=== PATIENT | male | born 1940 | race African-American/Black ===

== ENCOUNTER 2022-04-24 09:51 | Inpatient (IN) | payer OTHER, SELFPAY ==
[2022-04-24] VITALS (8 sets, daily range): BP systolic 132–189; BP diastolic 63–90; PULSE 73–96; RESP 12–16; TEMP 36.1–36.8; O2SAT 96–99; BMI 20.7
--- NOTE | ~2022-04-24 | CT_ITS ---
EXAMINATION: CT ABDOMEN AND PELVIS WITHOUT CONTRAST CLINICAL INFORMATION: With a history of pancreatitis COMPARISON: None TECHNIQUE: Multidetector volumetric imaging was performed from the superior aspect of the liver through the pubic symphysis. Sagittal and coronal reformatted images were obtained on the technologist's workstation. This CT examination was performed using dose optimization techniques as appropriate, variously including the following: *Automated exposure control *Adjustment of mA and/or kV according to patient size (this includes techniques or standardized protocols for targeted exams where dose is matched to indication/reason for exam; i.e. extremities or head) *Use of iterative reconstruction technique DLP: 157 mGy-cm FINDINGS: LUNG BASES: The visualized lung bases are unremarkable. Small anterior pericardial effusion/thickening LIVER, GALLBLADDER, AND BILIARY TREE: The liver is normal in size, shape, and attenuation. No focal hepatic lesion or biliary ductal dilatation is present. The gallbladder is unremarkable with no evidence of radiopaque gallstones, gallbladder wall thickening, or obvious pericholecystic inflammatory changes. PANCREAS: There is mild fullness of the pancreatic head and there is some soft tissue stranding surrounding the region. SPLEEN: Unremarkable. ADRENAL GLANDS: Unremarkable. KIDNEYS AND URETERS: No hydronephrosis. Simple appearing cyst on the right. Areas of low attenuation on the left could represent cysts. BLADDER: Bladder is thick-walled. GASTROINTESTINAL TRACT: Diverticulosis in the large bowel. No evidence for diverticulitis here. Some minimal soft tissue stranding surrounding the appendix but the appendix is normal and this may be the patient's baseline. ABDOMINAL WALL: No significant hernia is appreciated. LYMPH NODES: There is some adenopathy in the region of the pancreas. This is not bulky. May be reactive. VASCULAR: Atherosclerotic change. Mild ectasia of the iliacs. PELVIC VISCERA: Some free fluid in the deep pelvis. Prominent prostate. OSSEOUS STRUCTURES: Degenerative changes. No suspicion for a bony lesion. CT/CT abdomen pelvis wo con IMPRESSION: Noncontrast study limits this exam The pancreatic head is enlarged here with some surrounding soft tissue stranding and mild adenopathy. While this could represent sequela of pancreatitis an underlying mass cannot be excluded and I would recommend follow-up and clinical correlation here. Mild free fluid in the deep pelvis of uncertain etiology. The bowel pattern is unremarkable. Diverticulosis but no evidence for diverticulitis. Probable cystic change as described in the kidneys. Ultrasound would be recommended to fully evaluate. Prominent prostate. Thick-walled bladder could be hypertrophy. Small anterior pericardial effusion/thickening Fleischner guidelines were followed.
--- NOTE | 2022-04-24 10:28 | ED.ABDPAIN ---
HPI - Abdominal Pain General Chief Complaint: Abdominal Pain Stated Complaint: abdominal tenderness Time Seen by Provider: 04/24/22 09:54 Source: patient, EMS, RN notes reviewed and old records reviewed Mode of arrival: EMS Limitations: no limitations History of Present Illness HPI narrative: This is a 81-year-old male, with a past medical history of hypertension and pancreatitis in the , who presents today via EMS with complaints of abdominal pain since Tuesday. Patient reports that the abdominal pain is epigastric, constant, but does not radiate and increases in pain with palpation. He denies any nausea, vomiting, or diarrhea. He denies any fevers or chills. He reports that he drank two beers and a shot of vodka on Tuesday, and several hours after he felt this abdominal pain. He states that he drinks alcohol rarely, never a daily drinker. He states that his pain feels similar to his pancreatitis he had back in 1979. He states that he is not sure why he had pancreatitis at that time but states that he did drink alcohol more frequently then and also consumed alot of spicy foods. Denies any history of any abdominal surgeries or known history of gallstones. Denies any other complaints or concerns at this time. MD elicited complaint: abdominal pain Pertinent past history: none Onset (ago): day(s) Pain Consistency: constant Location: epigastric Severity: moderate Pain scale (0-10): 8 Quality: aching Radiation: none Migration to: no migration Exacerbating factors: other (palpation) Relieving factors: nothing Context: history of similar episodes Associated symptoms: denies other symptoms Related Data Allergies Allergy/AdvReac Type Severity Reaction Status Date / Time No Known Allergies Allergy Mild NONE Unverified 06/26/20 17:36 Review of Systems Review of Systems Constitutional: No Fever, No Chills ENT/Mouth: No sore throat, No Rhinorrhea, No Swallowing Difficulty Eyes: No Eye Pain, No Swelling, No Redness Cardiovascular: No Chest Pain, No SOB, No Orthopnea, No Edema Respiratory: No Cough, No Sputum, No Wheezing, No dyspnea Gastrointestinal: +abdominal pain, No Nausea, No Vomiting, No Diarrhea, No Hematochezia, No Melena Genitourinary: No Dysuria, No Urinary Frequency, No Hematuria Musculoskeletal: No joint pain, No Myalgias Skin: No Skin Lesions, No rash Neuro: No Weakness, No Numbness, No Dizziness, No Headache Psych: No Anxiety/Panic, No Depression Heme/Lymph: No Bruising, No Lymphadenopathy Endocrine: No Polyuria, No Polydipsia [facility] Social History Social History Alcohol intake: former Patient Tobacco Use Status: Former Tobacco user Smoked in Last 30 Days: No Use of substances other than those prescribed or required for medical reasons: No Advance Directives: No Advance Directives Information Provided: Yes Physical Exam ED Vital Signs: Vital Signs - 24 hr 04/24/22 10:04 04/24/22 12:37 Temperature 98.3 F 97.6 F Pulse Rate 82 77 Respiratory Rate 16 16 Blood Pressure 132/63 168/69 H Pulse Oximetry 99 99 Oxygen Delivery Method Room Air Room Air BMI result Body Mass Index 20.7 Appearance: Alert. Oriented X3. No acute distress. Eyes: Pupils equal, round and reactive to light. ENT: Pharynx normal. Neck: Normal inspection. Neck supple. CVS: Normal heart rate and rhythm. Pulses normal. Respiratory: No respiratory distress. Breath sounds normal. Abdomen: abdomen is soft. Tenderness to palpation in the epigastric region. No rebound or guarding.+BS x4 Skin: Skin warm and dry. Normal skin color. Normal skin turgor. No rashes. Extremities: No lower extremity edema. Neuro: Oriented X 3. No motor deficit. No sensory deficit. Course Course Course Narrative: This is an 81-year-old male, with a past medical history of pancreatitis in the 1980s, who presents today with complaints of abdominal pain. He states that this pain feels like the pancreatitis he had in the past. Vital signs are within normal limits at this time. Plan: CBC, BMP, EKG, magnesium, liver function panel, lipase, ethyl alcohol, COVID [address] abdomen pelvis without contrast ordered. 1 L of IV fluids ordered and Fentanyl 50 mcg IV given for pain management. Reevaluation(s) Reevaluation #1: Patient was re-evaluated. Elevated lipase at 228. CT scan reveals the pancreatic head is enlarged with some soft tissue stranding and mild adenopathy. While this could represent a sequela of pancreatitis an underlying mass cannot be excluded. Incidental finding mild free fluid in the deep pelvis of uncertain etiology, diverticulosis without diverticulitis, probable cystic change described in the kidneys recommended ultrasound follow-up. Prominent prostate with thick-walled bladder exam be hypertrophy. Small anterior pericardial effusion and thickening. BISAP score for pancreatitis: 2 Vital signs remain stable. He states that his pain resolved with fentanyl and the IV fluids. His abdomen is soft and nontender. Several minutes after the examination patient reports that he has some mild cramping in his epigastrium region. PO trial of juice performed. Will re-evaluate. Time: 12:20 Reevaluation #2: Discussed case with Dr. Sanders who because of his CT findings and patient's age would benefit from hospital admission for further management. Recommending MRI w/ con for further evaluation of possible pancreatic mass. Pending admission. Time: 12:50 MDM - Abdominal Pain Lab Data Result diagrams: 04/24/22 10:27 04/24/22 10:27 Labs: Lab Results 04/24/22 04/24/22 04/24/22 Range/Units 10:24 10:27 10:27 WBC 5.9 (4.8-10.8) X10*3/uL RBC 3.76 L (4.60-5.80) X10*6/uL Hgb 11.6 L (14.0-18.0) g/dl Hct 35.2 L (42.0-52.0) % MCV 93.6 (80.0-98.0) fL MCH 30.9 (27.0-33.0) pg MCHC 33.0 (31.0-36.0) g/dl RDW 12.7 (11.0-16.0) % Plt Count 198 (160-400) X10*3/uL MPV 9.4 (9.4-12.4) fL Immature Gran % (Auto) 0.3 (0.0-0.4) % Neut % (Auto) 66.5 (45-73) % Lymph % (Auto) 15.1 L (20-40) % Barnes % (Auto) 14.2 H (2-11) % Eos % (Auto) 3.2 (0-4) % Baso % (Auto) 0.7 (0-2) % Lymph # (Auto) 0.9 L (1.2-4.9) X10*3/uL Barnes # (Auto) 0.8 (0.1-1.2) X10*3/uL Eos # (Auto) 0.2 (0.0-0.4) X10*3/uL Baso # (Auto) 0.0 (0.0-0.2) X10*3/uL Abs Immat Gran (auto) 0.02 (0.00-0.03) X10*3/uL Absolute Neuts (auto) 3.9 (2.0-8.3) x10*3/uL Absolute Nucleated RBC 0.000 (0.0-0.012) X10*3/uL Nucleated RBC % (auto) 0.0 (0.0-0.2) /100WBC Sodium 136 (135-145) mmol/L Potassium 5.0 (3.3-5.1) mmol/L Chloride 105 (96-108) mmol/L Carbon Dioxide 23 (22-29) mmol/L Anion Gap 13 (12-20) BUN 23 H (9-16) mg/dL Creatinine 1.50 H (0.5-1.4) mg/dL Estim Creat Clear Calc 37.3 Estimated GFR 45 Random Glucose 113 (60-115) mg/dL Calcium 8.7 (8.4-10.2) mg/dL Magnesium 1.8 (1.6-2.6) mg/dL Total Bilirubin 0.7 (0.0-1.0) mg/dL Direct Bilirubin 0.3 (0.0-0.5) mg/dL AST 37 (5-37) U/L ALT 18 (0-40) U/L Alkaline Phosphatase 65 (39-117) U/L Lactate Dehydrogenase 362 H (118-273) U/L Total Protein 7.0 (6.5-8.0) g/dL Albumin 3.7 (3.5-5.0) g/dL Triglycerides 32 mg/dL Lipase 228 H (8-78) U/L Ethyl Alcohol < 10 mg/dL COVID-19 (CARLOS) Negative (Negative) COVID-19 Clin Com See Note Imaging Data CT scan - abdomen: Attestation: I personally reviewed and interpreted this imaging study as follows: Radiologist's impression: FINDINGS: LUNG BASES: The visualized lung bases are unremarkable. Small anterior pericardial effusion/thickening LIVER, GALLBLADDER, AND BILIARY TREE: The liver is normal in size, shape, and attenuation. No focal hepatic lesion or biliary ductal dilatation is present. The gallbladder is unremarkable with no evidence of radiopaque gallstones, gallbladder wall thickening, or obvious pericholecystic inflammatory changes.? PANCREAS: There is mild fullness of the pancreatic head and there is some soft tissue stranding surrounding the region.? SPLEEN: Unremarkable.? ADRENAL GLANDS: Unremarkable.? KIDNEYS AND URETERS: No hydronephrosis. Simple appearing cyst on the right. Areas of low attenuation on the left could represent cysts. BLADDER: Bladder is thick-walled.? GASTROINTESTINAL TRACT: Diverticulosis in the large bowel. No evidence for diverticulitis here. Some minimal soft tissue stranding surrounding the appendix but the appendix is normal and this may be the patient's baseline. ABDOMINAL WALL: No significant hernia is appreciated.? LYMPH NODES: There is some adenopathy in the region of the pancreas. This is not bulky. May be reactive. VASCULAR: Atherosclerotic change. Mild ectasia of the iliacs. PELVIC VISCERA: Some free fluid in the deep pelvis. Prominent prostate. ? OSSEOUS STRUCTURES: Degenerative changes. No suspicion for a bony lesion.? CT/CT abdomen pelvis wo con IMPRESSION: Noncontrast study limits this exam The pancreatic head is enlarged here with some surrounding soft tissue stranding and mild adenopathy. While this could represent sequela of pancreatitis an underlying mass cannot be excluded and I would recommend follow-up and clinical correlation here. ? Mild free fluid in the deep pelvis of uncertain etiology. The bowel pattern is unremarkable. Diverticulosis but no evidence for diverticulitis. ? Probable cystic change as described in the kidneys. Ultrasound would be recommended to fully evaluate. ? Prominent prostate. Thick-walled bladder could be hypertrophy. ? Small anterior pericardial effusion/thickening ? Fleischner guidelines were followed. Discharge Plan Discharge Clinical Impression: Pancreatitis Patient Disposition: Admitted As Inpatient
[2022-04-24 10:32] LABS: MANUAL DIFF FLAG NO
[2022-04-24 10:35] LABS: Basophils Percent Auto 0.7 % (0-2); Eosinophils Absolute Auto 0.2 X10*3/uL (0.0-0.4); Eosinophils Percent Auto 3.2 % (0-4); Hematocrit 35.2 % (42.0-52.0); Hemoglobin 11.6 g/dl (14.0-18.0); Imm Gran Abs Auto 0.02 X10*3/uL (0.00-0.03); Imm Gran Pct Auto 0.3 % (0.0-0.4); Lymphocytes Absolute Auto 0.9 X10*3/uL (1.2-4.9); Lymphocytes Percent Auto 15.1 % (20-40); Mean Corpuscular Hemoglobin 30.9 pg (27.0-33.0); Mean Corpuscular Volume 93.6 fL (80.0-98.0); Mean Platelet Volume 9.4 fL (9.4-12.4); Monocytes Absolute Auto 0.8 X10*3/uL (0.1-1.2); Monocytes Percent Auto 14.2 % (2-11); Neutrophils Absolute Auto 3.9 x10*3/uL (2.0-8.3); Neutrophils Percent Auto 66.5 % (45-73); Platelet Count 198 X10*3/uL (160-400); Red Blood Count 3.76 X10*6/uL (4.60-5.80); Red Cell Distribution Width 12.7 % (11.0-16.0); White Blood Count 5.9 X10*3/uL (4.8-10.8)
[2022-04-24] MEDS: 0.9 % Sodium Chloride 1,000 ML 999 ML IVCONT (10:38)
[2022-04-24] MEDS: fentaNYL citrate/PF 100 MCG/2 ML VIAL 50 MCG IVPUSH (10:38)
[2022-04-24 10:54] LABS: Alanine Aminotransferase 18 U/L (0-40); Albumin Level 3.7 g/dL (3.5-5.0); Alkaline Phosphatase 65 U/L (39-117); Anion Gap 13 (12-20); Aspartate Amino Transferase 37 U/L (5-37); Bilirubin Direct 0.3 mg/dL (0.0-0.5); Bilirubin Total 0.7 mg/dL (0.0-1.0); Blood Urea Nitrogen 23 mg/dL (9-16); Calcium 8.7 mg/dL (8.4-10.2); Carbon Dioxide 23 mmol/L (22-29); Chloride 105 mmol/L (96-108); Creatinine Clr Calc Pharmacy 37.3; Estimated Glomerular Filt Rate 45; Ethanol < 10 mg/dL; Glucose Random 113 mg/dL (60-115); Lipase 228 U/L (8-78); Magnesium 1.8 mg/dL (1.6-2.6); Sodium 136 mmol/L (135-145)
[2022-04-24 10:59] LABS: COVID-19 Test Negative (Negative); IDNOW Serial# 08D9AD1C
[2022-04-24 12:40] LABS: Triglycerides 32 mg/dL
[2022-04-24 12:55] LABS: Lactate Dehydrogenase 362 U/L (118-273)
--- NOTE | 2022-04-24 14:20 | PHA.MEDREC ---
Pharmacy Consult ? Medication Reconciliation Pharmacy has completed the medication reconciliation. Spoke with patient in the ED. patient had a list and knew all medications. Patient took AM meds.
[2022-04-24] MEDS: HYDROmorphone HCl 0.5 MG/0.5 ML SYRINGE IVPUSH (14:49)
--- NOTE | 2022-04-24 15:37 | PM.IMHP ---
History of Present Illness Date of Service: 04/24/22 Chief Complaint: abdominal pain an 81 years old male with PMH of HTN, COPD who presents to the hospital complaining of abdominal pain for the last 3 days. The patient reports that he had some beer and vodka on Tuesday and since then he has been complaining of constant abdominal pain, epigastric, worsened with food with no associated nausea, vomiting, fever, change in bowel habit or urinary symptoms. He does not usually drink and this was 1 time occasion where he had some drinks. He reports that he had episode of pancreatitis back in s and was similar to what he is feeling right now. Images in the emergency showed an evidence of pancreatitis with elevated lipase. Will be admitted for further evaluation and treatment. Review of Systems Review of Systems: No fever, chills or weakness No chest pain, palpitation No shortness of breath or coughing Epigastric pain, no nausea or vomiting No urinary symptoms No any rash or wounds PMFSH Social History Alcohol intake: former Patient Tobacco Use Status: Former Tobacco user Smoked in Last 30 Days: No Use of substances other than those prescribed or required for medical reasons: No Advance Directives: No Advance Directives Information Provided: Yes Meds Allergies Allergy/AdvReac Type Severity Reaction Status Date / Time No Known Allergies Allergy Mild NONE Unverified 06/26/20 17:36 Active Medications: Current Medications Pharmacy Consult (Consult Rx Perform Med Rec) 1 each MISCELLANE ONCE PRN PRN Reason: Consult order Home Medications Medication Instructions Recorded Confirmed Last Taken Type acetaminophen 325 mg tablet 2 tab PO TID PRN fever/pain 04/24/22 04/24/22 Unknown History albuterol sulfate 3 ml inhalation Q4H PRN Shortness 04/24/22 04/24/22 04/24/22 History Of Breath albuterol sulfate 90 mcg/actuation 1 - 2 inh inhalation Q4-6H PRN 04/24/22 04/24/22 Unknown History aerosol inhaler Shortness Of Breath aspirin 81 mg tablet,delayed 1 tab PO DAILY 04/24/22 04/24/22 04/24/22 History release atorvastatin 80 mg tablet 1 tab PO BEDTIME 04/24/22 04/24/22 04/24/22 History docusate sodium 100 mg capsule 1 cap PO BID 04/24/22 04/24/22 04/24/22 History doxazosin 8 mg tablet 1 tab PO BEDTIME 04/24/22 04/24/22 04/24/22 History enalapril maleate 20 mg tablet 1 tab PO BID 04/24/22 04/24/22 04/24/22 History fluticasone 500 mcg-salmeterol 50 1 puff inhalation BID 04/24/22 04/24/22 04/24/22 History mcg/dose blistr powdr for inhalation (Wixela Inhub) pantoprazole 40 mg tablet,delayed 1 tab PO BID@0630,1630 04/24/22 04/24/22 04/24/22 History release Physical Exam Vital Signs and Narrative: Vital Signs: Last Vital Signs Temp 97.9 F 04/24/22 14:38 Pulse 73 04/24/22 14:38 Resp 16 04/24/22 14:49 BP 189/90 H 04/24/22 14:38 Pulse Ox 99 04/24/22 14:38 O2 Del Method 04/24/22 14:38 BMI result Body Mass Index 20.7 Const: Other: Constitutional : Alert, oriented, not in distress Neck : Normal inspection, Supple Cardiovascular : RRR, no JVP, no lower extremity edema Respiratory : fair bilateral air entry, no crackles, wheezes or rhonchi Gastrointestinal: soft, lax, Normal bowel sounds, epigastric tenderness with no surgical signs Skin : Warm, Dry Neurological : Alert & oriented x3, No focal deficit , CN 2-12 within normal Results Labs CBC and Chem 7: 04/24/22 10:27 04/24/22 10:27 Labs: Laboratory Results - last 24 hr 04/24/22 04/24/22 04/24/22 10:24 10:27 10:27 MCV 93.6 MCH 30.9 MCHC 33.0 RDW 12.7 Plt Count 198 MPV 9.4 Immature Gran % (Auto) 0.3 Neut % (Auto) 66.5 Lymph % (Auto) 15.1 L [place] % (Auto) 14.2 H Eos % (Auto) 3.2 Baso % (Auto) 0.7 Lymph # (Auto) 0.9 L [place] # (Auto) 0.8 Eos # (Auto) 0.2 Baso # (Auto) 0.0 Abs Immat Gran (auto) 0.02 Absolute Neuts (auto) 3.9 Absolute Nucleated RBC 0.000 Nucleated RBC % (auto) 0.0 Anion Gap 13 Estim Creat Clear Calc 37.3 Estimated GFR 45 Random Glucose 113 Calcium 8.7 Magnesium 1.8 Total Bilirubin 0.7 Direct Bilirubin 0.3 AST 37 ALT 18 Alkaline Phosphatase 65 Lactate Dehydrogenase 362 H Total Protein 7.0 Albumin 3.7 Triglycerides 32 Lipase 228 H Ethyl Alcohol < 10 COVID-19 (CARLOS) Negative COVID-19 Clin Com See Note Imaging Radiologist's Impressions: Impressions Abdomen/Pelvis CT 04/24/22 10:56 IMPRESSION: Noncontrast study limits this exam The pancreatic head is enlarged here with some surrounding soft tissue stranding and mild adenopathy. While this could represent sequela of pancreatitis an underlying mass cannot be excluded and I would recommend follow-up and clinical correlation here. Mild free fluid in the deep pelvis of uncertain etiology. The bowel pattern is unremarkable. Diverticulosis but no evidence for diverticulitis. Probable cystic change as described in the kidneys. Ultrasound would be recommended to fully evaluate. Prominent prostate. Thick-walled bladder could be hypertrophy. Small anterior pericardial effusion/thickening Fleischner guidelines were followed. Assessment and Plan (1) Pancreatitis: Status: Acute Plan an 81 years old male with PMH of HTN, COPD who presents to the hospital complaining of abdominal pain for the last 3 days. acute pancreatitis Seems to be related to his alcohol usage CT scan showed pancreatic head this enlarged with soft tissue stranding and mild adenopathy which could be concerning for possible underlying mass Start treatment with IV fluid Pain medication Clear liquids and advanced as tolerated Get GI evaluation Will likely need MRI with contrast to evaluate head of pancreas after this event resolves abnormal kidney function test No recent blood work to compare creatinine of 1.5 Cystic kidneys, Noted on CT scan Recommended ultrasound follow-up as outpatient monitor BMP COPD Albuterol as needed Hypertension Elevated treating at presentation Start his home medication of enalapril and monitor blood pressure DVT PPX Lovenox The patient will likely need 2 overnight hospital stay for treatment of acute pancreatitis and evaluation of kidney function. Quality Stroke Does the patient have a stroke diagnosis?: No VTE Prior VTE?: No VTE Risk Level:: Medical - moderate - high VTE Device Contraindication: Treatment Not Indicated VTE Drug Contraindication: N/A - Med Ordered
[2022-04-24] MEDS: 0.9 % Sodium Chloride 1,000 ML 150 ML IVCONT ×2 (15:49→23:22)
--- NOTE | 2022-04-24 17:26 | P.CNGI_ITS ---
History of Present Illness Data of Consult Service Date: 04/24/22 Requesting physician: Doris Machuca Primary Care Provider: Debby Segura MD HPI Reason for consult: pancreatitis 81 years old male with PMH of HTN, COPD who I am seeing for assessment for pancreatitis. Patient had some beer and vodka on Tuesday and since? then he has been complaining of constant 10/10 aching, epigastric pain, without radiation, worse with food, and no relieving factors. Denies nausea, vomiting, fever, change in bowel habit or urinary symptoms. he does have poor appettite right now but had been very good before this, no weight loss He said he has had pancreatitis before many years ago and this pain felt the same. He does not normally drink alcohol or take drugs Imaging with changes consistent with pancreatitis, although neoplasia cannot be ruled out. Review of Systems Review of Systems: Constitutional : No Weight loss, No Fever, No Chills ENT/Mouth : No sore throat, No Rhinorrhea Eyes: No Swelling, No Redness Cardiovascular : No Chest Pain, No SOB, No Edema Respiratory : No Cough, No Sputum, No Wheezing Gastrointestinal : see HPI Genitourinary : NO Dysuria, No Urinary Frequency, No Hematuria, No Urgency Musculoskeletal : No joint pain, No Myalgias, No Joint Swelling Skin : No Skin Lesions, No rash Neuro : No Weakness, No Numbness, No Dizziness, No Headache Psych : No Anxiety/Panic, No Depression Heme/Lymph: No Bruising, No Lymphadenopathy Endocrine : No Polyuria, No Polydipsia All other systems reviewed and are negative. [facility] Family History Pertinent family history: no fh of pancreatic cancer Social History Social History Alcohol intake: former Patient Tobacco Use Status: Former Tobacco user Smoked in Last 30 Days: No Use of substances other than those prescribed or required for medical reasons: No Advance Directives: No Advance Directives Information Provided: Yes Meds Allergies Allergy/AdvReac Type Severity Reaction Status Date / Time No Known Allergies Allergy Mild NONE Unverified 06/26/20 17:36 Active Medications: Current Medications Acetaminophen (Acetaminophen 325 Mg Tablet) 650 mg PO TID PRN PRN Reason: fever/pain Albuterol Sulfate (Albuterol Sulfate (0.083%) 2.5 Mg/3 Ml Vial.Neb) 2.5 mg INHALE Q4H PRN PRN Reason: Shortness Of Breath Albuterol Sulfate (Albuterol Sulfate 90 Mcg 8 Gm Inhaler) 2 puff INHALE Q4H PRN PRN Reason: Shortness Of Breath Aspirin (Aspirin Enteric Coated 81 Mg Tablet.) 81 mg PO DAILY [facility] Atorvastatin Calcium (Atorvastatin Calcium 80 Mg Tablet) 80 mg PO BEDTIME [facility] Docusate Sodium (Docusate Sodium 100 Mg Capsule) 100 mg PO BID [facility] Doxazosin Mesylate (Doxazosin Mesylate 2 Mg Tablet) 8 mg PO BEDTIME [facility]; Protocol Enalapril Maleate (Enalapril Maleate 10 Mg Tablet) 20 mg PO BID [facility]; Protocol Enoxaparin Sodium (Enoxaparin Sodium 40 Mg/0.4 Ml Syringe) 40 mg SUBCUT Q24H [facility] Fluticasone/Vilanterol (Fluticasone/Vilanterol 200/25 Blst.W.Dev) 1 puff INHALE RDAILY [facility] Sodium Chloride (Ns) 1,000 mls @ 150 mls/hr IVCONT .Q6H40M [facility] Last Admin: 04/24/22 15:49 Dose: 150 mls/hr Morphine Sulfate (Morphine Sulfate 4 Mg/Ml Cartridge) 4 mg IVPUSH Q4H PRN; Protocol PRN Reason: Pain, Severe (Pain Scale 7-10) Omeprazole (Omeprazole 20 Mg Capsule.) 20 mg PO BID@0630,1630 [facility] Ondansetron HCl (Ondansetron Hcl 4 Mg/2 Ml Vial) 4 mg IVPUSH Q8H PRN PRN Reason: Nausea and Vomiting Pharmacy Consult (Consult Rx Perform Med Rec) 1 each MISCELLANE ONCE PRN PRN Reason: Consult order Sodium Chloride (0.9 % Sodium Chloride Flush 3 Ml Syringe) 3 ml IVFLUSH QSHIFT [facility] Home Medications Medication Instructions Recorded Confirmed Last Taken Type acetaminophen 325 mg tablet 2 tab PO TID PRN fever/pain 04/24/22 04/24/22 Unknown History albuterol sulfate 3 ml inhalation Q4H PRN Shortness 04/24/22 04/24/22 04/24/22 History Of Breath albuterol sulfate 90 mcg/actuation 1 - 2 inh inhalation Q4-6H PRN 04/24/22 04/24/22 Unknown History aerosol inhaler Shortness Of Breath aspirin 81 mg tablet,delayed 1 tab PO DAILY 04/24/22 04/24/22 04/24/22 History release atorvastatin 80 mg tablet 1 tab PO BEDTIME 04/24/22 04/24/22 04/24/22 History docusate sodium 100 mg capsule 1 cap PO BID 04/24/22 04/24/22 04/24/22 History doxazosin 8 mg tablet 1 tab PO BEDTIME 04/24/22 04/24/22 04/24/22 History enalapril maleate 20 mg tablet 1 tab PO BID 04/24/22 04/24/22 04/24/22 History fluticasone 500 mcg-salmeterol 50 1 puff inhalation BID 04/24/22 04/24/22 0 04/24/22 History mcg/dose blistr powdr for inhalation (Wixela Inhub) pantoprazole 40 mg tablet,delayed 1 tab PO BID@0630,1630 04/24/22 04/24/22 04/24/22 History release Physical Exam Vital Signs: Vital Signs: Last Vital Signs Temp 97.9 F 04/24/22 14:38 Pulse 80 04/24/22 15:41 Resp 16 04/24/22 15:41 BP 178/87 H 04/24/22 15:41 Pulse Ox 98 04/24/22 15:41 O2 Del Method 04/24/22 15:41 BMI result Body Mass Index 20.7 EXAM: GENERAL: The patient is well developed and nontoxic. VITAL SIGNS:see workflow HEENT: Nonicteric sclerae, PERRLA, EOMI. Oropharynx clear. Moist mucous membranes. Conjunctivae appear well perfused. No thyroid mass. CHEST: Chest wall is nontender. HEART: Regular rate and rhythm without murmurs. LUNGS: Clear to auscultation bilaterally. ABDOMEN: Soft, positive bowel sounds, tender epigastrium, no organomegaly.no flank tenderness SKIN: No rash, no excessive bruising, petechiae, or purpura. NEUROLOGIC: Cranial nerves II-XII intact without motor/sensory deficit. psych--nml Results Labs CBC & Chem 7: 04/24/22 10:27 04/24/22 10:27 Labs: Short CBC 04/24/22 Range/Units 10:27 WBC 5.9 (4.8-10.8) X10*3/uL Hgb 11.6 L (14.0-18.0) g/dl Hct 35.2 L (42.0-52.0) % Plt Count 198 (160-400) X10*3/uL BMP 04/24/22 10:27 Sodium 136 Potassium 5.0 Chloride 105 Carbon Dioxide 23 BUN 23 H Creatinine 1.50 H Calcium 8.7 Liver Function 04/24/22 Range/Units 10:27 Total Bilirubin 0.7 (0.0-1.0) mg/dL Direct Bilirubin 0.3 (0.0-0.5) mg/dL AST 37 (5-37) U/L ALT 18 (0-40) U/L Alkaline Phosphatase 65 (39-117) U/L Albumin 3.7 (3.5-5.0) g/dL Imaging CT scan - abdomen: Attestation: I personally reviewed and interpreted this imaging study as follows: My impression: renal cyst, edematous pancreas head Assessment and Plan (1) Pancreatitis: Status: Acute Plan 1/ Pancreatitis prob from alcohol use, nml trigs, no stones seen on CT, mass not excluded 2/ Mild anemia, porb related to CKD PLAN: 1/ analgesia and fluids, preferably LR 2/ o/p MRI with IV contrast in 2- weeks 3/ avoid alcohol, seems overly sensitive. 4/ allow clears if doesnlt worsen his pain, then can advance as tolerated Procedures Date of Service Date of Service: 04/24/22
[2022-04-24] MEDS: Omeprazole 20 MG CAPSULE.DR PO (18:39)
[2022-04-24] MEDS: Morphine Sulfate 4 MG/ML CARTRIDGE IVPUSH (18:40)
[2022-04-24] MEDS: Enalapril Maleate 10 MG TABLET 20 MG PO ×2 (18:40→20:29)
--- NOTE | 2022-04-24 18:56 | PC.NURSE ---
Addendum entered by Laura Miller 04/24/22 19:27: report given to SONIDO Corey Original Note: report received from SONIDO Saucedo
[2022-04-24] MEDS: Atorvastatin Calcium 80 MG TABLET PO (20:29)
[2022-04-24] MEDS: Doxazosin Mesylate 2 MG TABLET 8 MG PO (20:29)
[2022-04-24] MEDS: Docusate Sodium 100 MG CAPSULE PO (20:29)
[2022-04-24] MEDS: Albuterol/Iprat 2.5/0.5MG 3 ML AMPUL.NEB INHALE (21:59)
[2022-04-25] VITALS (7 sets, daily range): BP systolic 138–193; BP diastolic 68–92; PULSE 74–100; RESP 16–20; TEMP 36.3–37; O2SAT 93–98
[2022-04-25] MEDS: 0.9 % Sodium Chloride 1,000 ML 150 ML IVCONT ×3 (05:50→20:22)
[2022-04-25] MEDS: Omeprazole 20 MG CAPSULE.DR PO (05:58)
[2022-04-25 06:24] LABS: Hematocrit 31.9 % (42.0-52.0); Hemoglobin 10.6 g/dl (14.0-18.0); Mean Corpuscular HGB Conc 33.2 g/dl (31.0-36.0); Mean Corpuscular Hemoglobin 31.5 pg (27.0-33.0); Mean Corpuscular Volume 94.9 fL (80.0-98.0); Mean Platelet Volume 9.3 fL (9.4-12.4); Platelet Count 176 X10*3/uL (160-400); Red Blood Count 3.36 X10*6/uL (4.60-5.80); Red Cell Distribution Width 12.8 % (11.0-16.0); White Blood Count 5.8 X10*3/uL (4.8-10.8)
[2022-04-25 06:51] LABS: Anion Gap 10 (12-20); Blood Urea Nitrogen 14 mg/dL (9-16); Calcium 8.3 mg/dL (8.4-10.2); Carbon Dioxide 25 mmol/L (22-29); Chloride 106 mmol/L (96-108); Creatinine Clr Calc Pharmacy 48.7; Estimated Glomerular Filt Rate > 60; Glucose Random 89 mg/dL (60-115); Potassium 4.9 mmol/L (3.3-5.1); Sodium 136 mmol/L (135-145)
[2022-04-25] MEDS: Aspirin Enteric Coated 81 MG TABLET.DR PO (09:09)
[2022-04-25] MEDS: Enalapril Maleate 10 MG TABLET 20 MG PO ×2 (09:09→20:24)
[2022-04-25] MEDS: Docusate Sodium 100 MG CAPSULE PO ×2 (09:09→20:22)
[2022-04-25] MEDS: Morphine Sulfate 4 MG/ML CARTRIDGE IVPUSH ×2 (09:14→15:48)
--- NOTE | 2022-04-25 09:28 | P.PNIM_ITS ---
Subjective Subjective Date of Service: 04/25/22 Interval History: f/u on abdominal pain d/t acute pancreatitis interval history: pain is better but still there and seem worse with food Review of Systems +abd pain no fever Physical Exam Vital Signs: Vital Signs: Last Vital Signs Temp 98.6 F 04/25/22 07:28 Pulse 75 04/25/22 07:28 Resp 20 04/25/22 07:28 BP 139/77 04/25/22 07:28 Pulse Ox 98 04/25/22 07:28 O2 Del Method 04/25/22 07:28 BMI result Body Mass Index 20.7 Const: Other: Constitutional : Alert, oriented, not in distress Neck : Normal inspection, Supple Cardiovascular : RRR, no JVP, no lower extremity edema Respiratory : fair bilateral air entry, no crackles, wheezes or rhonchi Gastrointestinal: soft, lax, Normal bowel sounds, epigastric tenderness, no acute abd sing Skin : Warm, Dry Neurological : Alert & oriented x3, No focal deficit , CN 2-12 within normal Objective Data Active Medications Acetaminophen (Acetaminophen 325 Mg Tablet) 650 mg PO TID PRN PRN Reason: fever/pain Albuterol Sulfate (Albuterol Sulfate (0.083%) 2.5 Mg/3 Ml Vial.Neb) 2.5 mg INH JASMIN Q4H PRN PRN Reason: Shortness Of Breath Albuterol Sulfate (Albuterol Sulfate 90 Mcg 8 Gm Inhaler) 2 puff INHALE Q4H PRN PRN Reason: Shortness Of Breath Albuterol/Ipratropium (Albuterol/Iprat 2.5/0.5mg 3 Ml Ampul.Neb) 3 ml INHALE Q4H PRN PRN Reason: Shortness of Breath/Wheezing Last Admin: 04/24/22 21:59 Dose: 3 ml Documented By: JOSHUA Aspirin (Aspirin Enteric Coated 81 Mg Tablet.) 81 mg PO DAILY [facility] Last Admin: 04/25/22 09:09 Dose: 81 mg Documented By: SUNG Atorvastatin Calcium (Atorvastatin Calcium 80 Mg Tablet) 80 mg PO BEDTIME [facility] Last Admin: 04/24/22 20:29 Dose: 80 mg Documented By: MARK Docusate Sodium (Docusate Sodium 100 Mg Capsule) 100 mg PO BID [facility] Last Admin: 04/25/22 09:09 Dose: 100 mg Documented By: SUNG Doxazosin Mesylate (Doxazosin Mesylate 2 Mg Tablet) 8 mg PO BEDTIME [facility]; Protocol Last Admin: 04/24/22 20:29 Dose: 8 mg Documented By: MARK Enalapril Maleate (Enalapril Maleate 10 Mg Tablet) 20 mg PO BID [facility]; Protocol Last Admin: 04/25/22 09:09 Dose: 20 mg Documented By: SUNG Enoxaparin Sodium (Enoxaparin Sodium 40 Mg/0.4 Ml Syringe) 40 mg SUBCUT Q24H [facility] Last Admin: 04/24/22 23:00 Dose: Not Given Documented By: MARK Non-Admin Reason: Patient Refused Fluticasone/Vilanterol (Fluticasone/Vilanterol 200/25 Blst.W.Dev) 1 puff INHALE RDAILY [facility] Last Admin: 04/25/22 07:36 Dose: Not Given Documented By: SERJIO Non-Admin Reason: Med Not Available Sodium Chloride (Ns) 1,000 mls @ 150 mls/hr IVCONT .Q6H40M [facility] Last Admin: 04/25/22 05:50 Dose: 150 mls/hr Documented By: MARK Morphine Sulfate (Morphine Sulfate 4 Mg/Ml Cartridge) 4 mg IVPUSH Q4H PRN; Protocol PRN Reason: Pain, Severe (Pain Scale 7-10) Last Admin: 04/25/22 09:14 Dose: 4 mg Documented By: SUNG Omeprazole (Omeprazole 20 Mg Capsule.Dr) 20 mg PO BID@0630,1630 [facility] Last Admin: 04/25/22 05:58 Dose: 20 mg Documented By: MARK Ondansetron HCl (Ondansetron Hcl 4 Mg/2 Ml Vial) 4 mg IVPUSH Q8H PRN PRN Reason: Nausea and Vomiting Pharmacy Consult (Consult Rx Perform Med Rec) 1 each MISCELLANE ONCE PRN PRN Reason: Consult order Sodium Chloride (0.9 % Sodium Chloride Flush 3 Ml Syringe) 3 ml IVFLUSH QSHIFT [facility] Last Admin: 04/25/22 09:08 Dose: Not Given Documented By: SUNG Non-Admin Reason: IV Running Labs CBC & Chem 7: 04/25/22 06:17 07 06:17 Labs: Laboratory Results - last 24 hr 04/24/22 04/24/22 04/24/22 10:24 10:27 10:27 MCV 93.6 MCH 30.9 MCHC 33.0 RDW 12.7 Plt Count 198 MPV 9.4 Immature Gran % (Auto) 0.3 Neut % (Auto) 66.5 Lymph % (Auto) 15.1 L [place] % (Auto) 14.2 H Eos % (Auto) 3.2 Baso % (Auto) 0.7 Lymph # (Auto) 0.9 L [place] # (Auto) 0.8 Eos # (Auto) 0.2 Baso # (Auto) 0.0 Abs Immat Gran (auto) 0.02 Absolute Neuts (auto) 3.9 Absolute Nucleated RBC 0.000 Nucleated RBC % (auto) 0.0 Anion Gap 13 Estim Creat Clear Calc 37.3 Estimated GFR 45 Random Glucose 113 Calcium 8.7 Magnesium 1.8 Total Bilirubin 0.7 Direct Bilirubin 0.3 AST 37 ALT 18 Alkaline Phosphatase 65 Lactate Dehydrogenase 362 H Total Protein 7.0 Albumin 3.7 Triglycerides 32 Lipase 228 H Ethyl Alcohol < 10 COVID-19 (CARLOS) Negative COVID-19 Clin Com See Note 04/25/22 04/25/22 06:17 06:17 MCV 94.9 MCH 31.5 MCHC 33.2 RDW 12.8 Plt Count 176 MPV 9.3 L Immature Gran % (Auto) Neut % (Auto) Lymph % (Auto) [place] % (Auto) Eos % (Auto) Baso % (Auto) Lymph # (Auto) [place] # (Auto) Eos # (Auto) Baso # (Auto) Abs Immat Gran (auto) Absolute Neuts (auto) Absolute Nucleated RBC 0.000 Nucleated RBC % (auto) 0.0 Anion Gap 10 L Estim Creat Clear Calc 48.7 Estimated GFR > 60 Random Glucose 89 Calcium 8.3 L Magnesium Total Bilirubin Direct Bilirubin AST ALT Alkaline Phosphatase Lactate Dehydrogenase Total Protein Albumin Triglycerides Lipase Ethyl Alcohol COVID-19 (CARLOS) COVID-19 Clin Com Assessment and Plan (1) COPD (chronic obstructive pulmonary disease): Status: Acute (2) HTN (hypertension): Status: Acute (3) Pancreatitis: Status: Acute Plan 81/m with COPD, HTN, CKD2 here with abd pain and found to have Acute pancreatitis--Pancreatitis prob from alcohol use, nml trigs, no stones seen on CT, mass not excluded -Pain control -advance diet as minh -Outpatient MRI with contrast in 2 week per GI recommendation Elevated Creatine--likely CKD 2, Creatine is better COPD--Albuterol as needed Hypertension--Enalapril DVT PPX Lovenox Quality Stroke Does the patient have a stroke diagnosis?: No VTE Prior VTE?: No VTE Risk Level:: Medical - moderate - high VTE Device Contraindication: Treatment Not Indicated VTE Drug Contraindication: N/A - Med Ordered
[2022-04-25] MEDS: Albuterol/Iprat 2.5/0.5MG 3 ML AMPUL.NEB INHALE (17:58)
[2022-04-25] MEDS: Atorvastatin Calcium 80 MG TABLET PO (20:22)
[2022-04-25] MEDS: Doxazosin Mesylate 2 MG TABLET 8 MG PO (20:24)
[2022-04-25] MEDS: 0.9 % Sodium Chloride Flush 3 ML SYRINGE IVFLUSH (20:25)
[2022-04-26 03:28] VITALS: BP 158/74; PULSE 80; RESP 16; TEMP 36.1; O2SAT 98
[2022-04-26] MEDS: 0.9 % Sodium Chloride 1,000 ML 150 ML IVCONT (03:34)
[2022-04-26] MEDS: Morphine Sulfate 4 MG/ML CARTRIDGE IVPUSH (06:42)
[2022-04-26 07:51] VITALS: BP 174/68; PULSE 78; RESP 14; TEMP 36.7; O2SAT 98
[2022-04-26] MEDS: Enalapril Maleate 10 MG TABLET 20 MG PO (07:59)
[2022-04-26] MEDS: Docusate Sodium 100 MG CAPSULE PO (08:00)
[2022-04-26] MEDS: Aspirin Enteric Coated 81 MG TABLET.DR PO (08:00)
[2022-04-26] MEDS: Fluticasone/Vilanterol 200/25 BLST.W.DEV 1 PUFF INHALE (08:20)
[2022-04-26 08:25] VITALS: PULSE 92; RESP 18; O2SAT 96
--- NOTE | 2022-04-26 09:32 | PM.DS ---
DS: Providers Provider Date of Service: 04/26/22 Date of admission: 04/24/22 15:32 Primary care physician: Debby Segura MD Consults: 04/24/22 12:40 Consult to Gastroenterology Stat Consulting Provider: Brooklynn Sanders Reason for consultation: pancreatitis Has provider been notified: Yes DS: Diagnosis Discharge Diagnosis (1) COPD (chronic obstructive pulmonary disease): Status: Acute (2) HTN (hypertension): Status: Acute (3) Pancreatitis: Status: Acute DS: Summary Hospital Course Hospital Course: Chief Complaint:? abdominal pain ?an 81 years old male with PMH of HTN, COPD who presents to the hospital complaining of abdominal pain for the last 3 days. The patient reports that he had some? beer and vodka on Tuesday and since? then he has been complaining of constant abdominal pain, epigastric, worsened with food with no associated nausea, vomiting, fever, change in bowel habit or urinary symptoms.? He does not usually drink and this was 1 time occasion where he had some drinks. He reports that he had episode of pancreatitis back in 80s and was similar to what he is feeling right now.? Images in the emergency showed an evidence of pancreatitis with elevated lipase.? Will be admitted for further evaluation and treatment. Hospital course: acute pancreatitis--Pancreatitis prob from alcohol use, triglycerides were normal, no stones seen on CT, he admit to using alcohol which we think is the cause. He was treated with pain med, hydration, initially liquid diet now advanced to regular diet which he is tolerating fine. Dr. Sanders (Gastroenterolgist) consulted on him and recommends conservative management and to get MRI on outpatient basis.. He will follow up with Dr. Sanders in the office for this purpose. DIDI--likely prerenal, baseline creatinine is unclear. Presenting Creatine was 1.5 and after hydration went down to 1.15 HTN--to resume enalaprl upon discharge and to follow up with PCP Time Spent with Patient Time attestation: Total time spent providing and/or coordinating discharge services: Discharge coordination time: Greater than 30 minutes Quality: Safe Use of Opioids Does Pt have an Active Cancer Diagnosis on the Problem List?: No Quality: Stroke Does the patient have a stroke diagnosis?: No Physical Exam Vital Signs: Vital Signs: Last Vital Signs Temp 98.0 F 04/26/22 07:51 Pulse 92 07/18/22 08:25 Resp 18 04/26/22 08:25 BP 174/68 H 04/26/22 07:51 Pulse Ox 98 04/26/22 07:51 O2 Del Method 04/26/22 07:51 BMI result Body Mass Index 20.7 Discharge Plan Discharge Anticipated Discharge Date/Time: 04/26/22 09:25 Patient Disposition: Home, Self-Care Discharge Diagnosis: Acute pancreatitis Referrals: Brooklynn Sanders MD [Physician] - 2 Weeks (To get MRI done) Debby Segura MD [Primary Care Provider] - 1 Week Discharge Medications: Continued atorvastatin 80 mg tablet 1 tab PO BEDTIME acetaminophen 325 mg tablet 2 tab PO TID PRN (Reason: fever/pain) albuterol sulfate 2.5 mg /3 mL (0.083 %) solution for nebulization 3 ml inhalation Q4H PRN (Reason: Shortness Of Breath) enalapril maleate 20 mg tablet 1 tab PO BID aspirin 81 mg tablet,delayed release (DR/EC) 1 tab PO DAILY doxazosin 8 mg tablet 1 tab PO BEDTIME pantoprazole 40 mg tablet,delayed release (DR/EC) 1 tab PO BID@0630,1630 fluticasone propion-salmeterol [Wixela Inhub] 500-50 mcg/dose blister with device 1 puff inhalation BID docusate sodium 100 mg capsule 1 cap PO BID albuterol sulfate 90 mcg/actuation HFA aerosol inhaler 1 - 2 inh inhalation Q4-6H PRN (Reason: Shortness Of Breath) Discharge Orders: Discharge Order (Routine); Ordered 04/26/22 Ordered By: Alin Newell Diet: Advance to usual diet Activity on Discharge: As tolerated Stand Alone Forms: Patient Portal Discharge page Care Plan Goals: recvovery from pancreatitis Health Concerns: alcohol related pancreatitis Plan of Treatment: avoid alcohol, follow up with Dr. Sanders to get MRI on outpatient basis Assessment: as above
--- NOTE | 2022-04-26 10:21 | MHC.CM.PN ---
Meet with patient, CM assessment completed see intervention for details. IMM completed. Patient declined to complete HCP, wants to think about who as it is an important decision. Plan to return home w/ resumption of [employer] services.
[2022-04-26 10:44] LABS: Lipase 46 U/L (8-78)
== END 2022-04-26 11:45 | disposition home or self-care (01) | DRG 440 ==
LOC: HO.ED 13:17 → HO.EDOVER 15:39 → HO.S3 19:02
PROVIDERS: Physician Assistant; Admitting Provider Student in an Organized Health Care Education/Training Program; Emergency Provider Emergency Medicine; PCP Internal Medicine; Visit Provider Internal Medicine
DX: K85.20 Alcohol induced acute pancreatitis without necrosis or infection (principal); D63.1 Anemia in chronic kidney disease; I12.9 Hypertensive chronic kidney disease with stage 1 through stage 4 chronic kidney disease, or unspecified chronic kidney disease; N18.2 Chronic kidney disease, stage 2 (mild); J44.9 Chronic obstructive pulmonary disease, unspecified; Z20.822 Contact with and (suspected) exposure to COVID-19; Z87.891 Personal history of nicotine dependence; Z79.51 Long term (current) use of inhaled steroids; Z79.82 Long term (current) use of aspirin; Z79.899 Other long term (current) drug therapy
CPT/HCPCS: 36415; 74176; 80048; 80076; 82077; 83615; 83690; 83735; 84478; 85025; 85027; 87635; 94640; 96361; 96374; 96375; 99284; 99285; J1170; J2270; J3010